=== PATIENT | male | born 1995 | race Caucasian/White ===

== ENCOUNTER 2023-06-07 11:26 | Emergency (ER) | payer BC, SELFPAY ==
--- NOTE | ~2023-06-07 | US_ITS ---
EXAMINATION: US right upper quadrant DATE: 06/07/2023 15:27 INDICATION: Right upper quadrant abdominal pain. Epigastric abdominal pain. TECHNIQUE: Multiple grayscale and Doppler ultrasound images of the abdomen were obtained. COMPARISON: None FINDINGS: The visualized portions of the head, body, and tail of the pancreas are normal. The liver i s normal without focal lesion. There is antegrade flow in main portal vein. The gallbladder is normal in size and contains polyps measuring up to 6 mm, likely benign. No visible stone. No gallbladder wa ll thickening or sonographic [place] sign. The common duct is normal and measures 4 mm. IMPRESSION: 1. No etiology for the patient's symptoms. Reviewed, dictated and finalized at location A.
[2023-06-07 11:30] VITALS: BP 120/70; PULSE 76; RESP 16; TEMP 36.7; O2SAT 99
--- NOTE | 2023-06-07 13:21 | ED.ABDPAIN ---
HPI - Abdominal Pain General Chief Complaint: Abdominal Pain <Brenna Puentes PA-C - Last Filed: 06/07/23 13:22> Stated Complaint: upper abd pain <Brenna Puentes PA-C - Last Filed: 06/07/23 13:22> Time Seen by Provider: 06/07/23 15:19 <Brenna Puentes PA-C - Last Filed: 06/07/23 13:22> Focused HPI: 27 y/o male presents to emergency department for epigastric abdominal pain x3 days. Patient reports the pain is in his epigastrium and symptoms in the right upper quadrant. He denies aggravating or alleviating factors or association with eating. He reports nausea but no emesis. Denies fever, diarrhea, dysuria or hematuria. No prior abdominal surgeries. GENERAL: Well-appearing, well-nourished, and in no acute distress. HEAD: Normocephalic, atraumatic. CHEST: Clear to auscultation. ?No respiratory distress. ABD: Abdomen soft with tenderness in the epigastrium and right upper quadrant. No guarding, rebound or rigidity. HEART: Regular rate and rhythm.? NEURO: ?Alert and oriented x3. Patient screened in triage and initial orders placed.? ?Additional care and disposition to be based upon?diagnostic testing and treatment. <Brenna Puentes PA-C - Last Filed: 06/07/23 13:22> History of Present Illness HPI narrative: 27-year-old male presents emergency department for evaluation of epigastric pain for the past 3 days. <Ramu Taylor MD - Last Filed: 06/07/23 20:26> Related Data Allergies/Adverse Reactions: Allergies Allergy/AdvReac Type Severity Reaction Status Date / Time No Known Allergies Allergy Verified 06/07/23 13:37 <Brenna Puentes PA-C - Last Filed: 06/07/23 13:22> Review of Systems Review of Systems: All systems reviewed & are unremarkable except as noted in HPI and below <Ramu Taylor MD - Last Filed: 06/07/23 20:26> Exam Narrative: APPEARANCE: Well appearing, no pain, no distress, well-nourished. HEAD: normocephalic, atraumatic. EYES: PERRLA/EOMI, conjunctivae clear. NOSE: Normal no drainage EARS:TMS clear with good light reflex. THROAT: Pharynx clear, no exudate. NECK: Supple. No adenopathy, no masses. RESPIRATORY: Airway patent, respirations nonlabored. Clear to auscultation bilaterally, no rales, rhonchi, wheezing. CARDIOVASCULAR: Regular rate and rhythm without murmurs rubs or gallops. ABDOMINAL: Epigastric tenderness to palpation MUSCULOSKELETAL: Moves all extremities. Strength/ROM intact, No edema, No calf tenderness. NEURO: Alert. Cranial nerves II through XII intact. Grossly intact SKIN: Warm, dry. Normal Color <Ramu Taylor MD - Last Filed: 06/07/23 20:26> Course Course Emergency Course: Patient was of the results of his workup and was encouraged of close follow-up <Ramu Taylor MD - Last Filed: 06/07/23 20:26> Vital Signs Vital signs: Vital Signs Temperature 98.1 F 06/07/23 11:30 Pulse Rate 76 06/07/23 11:30 Respiratory Rate 16 06/07/23 11:30 Blood Pressure 120/70 06/07/23 11:30 Pulse Oximetry 99 06/07/23 11:30 Oxygen Delivery Room Air 06/07/23 11:30 Temperature 98.1 F 06/07/23 11:30 Pulse Rate 52 L 06/07/23 17:53 Respiratory Rate 18 06/07/23 17:53 Blood Pressure 104/59 L 06/07/23 17:53 Pulse Oximetry 99 06/07/23 17:53 Oxygen Delivery Room Air 06/07/23 11:30 <Brenna Puentes PA-C - Last Filed: 06/07/23 13:22> Vital Signs Temperature 98.1 F 06/07/23 11:30 Pulse Rate 76 06/07/23 11:30 Respiratory Rate 16 06/07/23 11:30 Blood Pressure 120/70 06/07/23 11:30 Pulse Oximetry 99 06/07/23 11:30 Oxygen Delivery Room Air 06/07/23 11:30 Temperature 98.1 F 06/07/23 11:30 Pulse Rate 52 L 06/07/23 17:53 Respiratory Rate 18 06/07/23 17:53 Blood Pressure 104/59 L 06/07/23 17:53 Pulse Oximetry 99 06/07/23 17:53 Oxygen Delivery Room Air 06/07/23 11:30 <Ramu Taylor MD - Last Filed: 06/07/23 20:26> MDM - Abdominal Pa
[2023-06-07] MEDS: FAMOTIDINE 20 MG/2 ML VIAL IV PUSH (13:38)
[2023-06-07] MEDS: BELLADONNA ALK/PHENOB ELIX 10 ML, MAG HYDROX/ALUMINUM HYD/SIMETH 30 ML, LIDOCAINE HCL 2... PO (13:38)
[2023-06-07 13:49] LABS: Basophils Percent Auto 0.3 % (0.2-1.2); Eosinophils Absolute Auto 0.1 K/mm3 (0-0.3); Eosinophils Percent Auto 0.7 % (0-4.4); Hematocrit 45.8 % (42.0-52.0); Hemoglobin 15.6 g/dL (14.0-18.0); Immature Granulocyte Absolute 0.03 K/mm3 (0.00-0.031); Immature Granulocyte Percent A 0.4 % (0-0.5); Lymphocytes Absolute Auto 1.79 K/mm3 (0.9-3.2); Lymphocytes Percent Auto 26.7 % (18.3-44.2); Mean Corpuscular HGB Conc 34.1 g/dl (32-36); Mean Corpuscular Hemoglobin 28.3 pg (26-34); Mean Platelet Volume 10.4 fl (7.4-10.4); Monocytes Absolute Auto 0.4 K/mm3 (0.1-0.6); Monocytes Percent Auto 6.6 % (2.6-8.5); Neutrophils Absolute Auto 4.4 K/mm3 (1.3-6.7); Neutrophils Percent Auto 65.3 % (45.5-73.1); Platelet Count Result 191 k/mm3 (150-375); Red Blood Count 5.52 M/mm3 (4.6-6.20); Red Cell Distribution Width 13.2 % (11.5-14.5); White Blood Count 6.7 K/mm3 (4.5-10.0)
[2023-06-07 13:53] LABS: Alanine Aminotransferase 13 U/L (6-50); Alkaline Phosphatase 58 U/L (38-126); Anion Gap 2 mmol/L (4-12); Aspartate Amino Transferase 19 U/L (17-59); Bilirubin,Total 0.4 mg/dL (0.2-1.3); Blood Urea Nitrogen 11 mg/dL (9-20); Calcium 9.3 mg/dL (8.4-10.2); Carbon Dioxide 28 mmol/L (22-30); Chloride 108 mmol/L (98-107); Estimated CRCL calculation 152 ml/min; Estimated Glomerular Filt Rate > 60; Glucose 103 mg/dL (65-110); Lipase 34 U/L (23-300); Sodium 138 mmol/L (137-145)
[2023-06-07 14:09] LABS: Appearance Urine Turbid (Clear); Bacteria Urine None Seen /hpf; Bilirubin Urine Negative (Negative); Blood Urine Negative (Negative); Color Urine Yellow (Yellow); Glucose Urine UA Negative (Negative); Ketones Urine Negative (Negative); Leukocyte Esterase Ur Negative LEU/UL (Negative); Nitrate Urine Negative (Negative); Non Pathogenic Casts 0-2; Protein Urine Negative (Negative); RBC Urine 0-2 /hpf (0-2); Squamous Epithelial Cell Urine None Seen /hpf (Few); WBC Urine 0-5 /hpf (0-3)
[2023-06-07 14:20] LABS: Add Urine Microscopic? YES
[2023-06-07] MEDS: PANTOPRAZOLE SODIUM IV 40 MG VIAL IV PUSH (17:51)
[2023-06-07 17:53] VITALS: BP 104/59; PULSE 52; RESP 18; O2SAT 99
== END 2023-06-07 17:58 | disposition home or self-care (01) ==
PROVIDERS: Physician Assistant; Emergency Provider Emergency Medicine; Referring Provider Emergency Medicine
DX: R10.13 Epigastric pain (principal)
CPT/HCPCS: 36415; 76705; 80053; 81001; 83690; 85025; 96374; 96375; 99284; A9270; C9113